=== PATIENT | male | born 1935 | race Caucasian/White ===

== ENCOUNTER 2019-10-17 09:35 | Inpatient (IN) | payer MEDICARE, OTHER ==
[~2019-10-17] VITALS: Ht 185.4 cm; Wt 156.5 kg
--- NOTE | ~2019-10-17 | HEMODYNAMI ---
PATIENT:TIMMY REYES MEDICAL RECORD: [id number] : 37 LOCATION:[facility] D.7 ADMISSION DATE: 10/17/19 Generatedon:10/19/20199:36 Patient name: TIMMY REYES Patient #: [id number] SSN: : 1935 Date of study: 10/19/2019 Page: Of Hemodynamic Procedure Report Patient Data Patient Demographics Procedure consent was obtained First Name: TIMMY Gender: Male Last Name: AMY : 1935 Patient #: [id number] Age: 83 year(s) Race: Additional ID: [id number] Contact details [address]: [address] [place] [address] ln State: [place] City: [place] Zip code: [address] Past Medical History Allergies Allergen Reaction Date Comments Reported Other allergy 10/19/2019 NKDA Admission Admission Data Admission Date: 10/17/2019 Admission Time: 12:09 Room #: D.2117 Height (in.): 72.83 BSA: 2.7 (m2) Height (cm.): 185 BMI: 45.58 (kg/m2) Weight (lbs.): 343.92 Weight (kg.): 156 Lab Results Lab Result Date: 10/19/2019 Lab Result Time: 0:00 Biochemistry Name Units Result Min Max BUN mg/dl 15 --(--*-)-- 7 18 Creatinine mg/dl 1.1 --(--*-)-- 0.6 1.3 eGFR ml/min 67.62504 *-(----)-- 90 120 NONAFRICAN CBC Name Units Result Min Max Hematocrit % 48.1 --(--*-)-- 42 54 Hemoglobin g/dl 15.9 --(--*-)-- 13.5 17.5 Procedure Procedure Types Cath Procedure Diagnostic Procedure [facility] w/Coronaries Sedation Charges Moderate Sedation up to 15 minutes Procedure Description Procedure Date Procedure Date: 10/19/2019 Procedure Start Time: 9:23 Procedure End Time: 9:35 Procedure Staff Name Function Tran Tala RT Monitor Jeaneth Lozano RT Scrub Bobbi Grove RN Nurse Julio Sigala MD Performing Physician Procedure Data Cath Procedure Fluoroscopy Diagnostic fluoroscopy Total fluoroscopy Time: 1.6 time: 1.6 min min Diagnostic fluoroscopy Total fluoroscopy dose: 779 dose: 779 mGy mGy Contrast Material Contrast Material Type Amount (ml) Isovue 300 76 Entry Location Entry Primary Successful Side Size Upsize Upsize Entry Closure Succes sful Closure Location (Fr) 1 (Fr) 2 (Fr) Remarks Device Remarks Femoral Right 5 Fr Exoseal artery Estimated blood loss: 5 ml Diagnostic catheters Device Type Used For End Catheter Placement MULTIPACK JL 4.0 5Fr Left Coronary catheter Angiography MULTIPACK 3DRC 5Fr Right Coronary catheter Angiography MULTIPACK Pigtail 5 Fr LV Angiography catheter Procedure Complications No complications Procedure Medications Medication Administration Route Dosage Oxygen etCO2 Nasal cannula 2 l/min Lidocaine 2% added to field 20 Heparin Flush Bag added to field 2 bags (1000units/500ml NS) 0.9% NaCl I.V. 100 ml/hr Versed I.V. 1 mg Fentanyl I.V. 50 mcg Versed I.V. 1 mg Fentanyl I.V. 50 mcg unlisted medication I.V. drip 0.5 mg/hr Hemodynamics Rest BSA: 2.7 (m2) HGB: 15.9 (g/dl) O2 Consumption: Estimated: 310.53 (ml/min) O2 Con sumption indexed: Estimated:115.01 (ml/min/m) Heart Rate: 73 (bpm) Pressure Samples Time Site Value (mmHg) Purpose Heart Use Rate(bpm) 9:30 LV 132/16,15 Snapshot 73 Gradients Valve Time Site Site Mean SEP/DFP Peak To Heart Use 1 2 (mmHg) (sec/min) Peak Rate (mmHg) (bpm) Aortic 9:30 LV AO 74 Snapshots Pre Cath Intra NCS Post Cath Vital Signs Time Heart Resp SPO2 etCO2 NIBP (mmHg) Rhythm Pain Sedation Rate (ipm) (%) (mmHg) Status Level (bpm) 9:19:52 72 22 96 0 147/73(119) NSR 0 (11) 10(A) , No pain 9:24:33 74 18 93 0 125/56(81) NSR 0 (11) 10(A) , No pain 9:29:03 72 14 93 0 126/64(96) NSR 0 (11) 9(A) , No pain 9:33:31 72 19 95 0 137/65(100) NSR 0 (11) 10(A) , No pain Medications Time Medication Route Dose Verified Delivered Reason Notes E ffectiveness by by 9:20:26 Bumex drip I.V. 0.5 Julio Buffie Per Continued drip mg/hr [facility] Robert Grove RN physician from [facility] [place] floor via alaris pump. 9:22:25 Oxygen etCO2 2 Julio Buffie used for Nasal l/min [facility] transistor tester cannula 9:22:32 Lidocaine 2% added 20ml Julio Julio for local to vial [facility] anesthetic field MD HOLGUIN 9:22:39 Heparin Flush added 2 Julio Julio used for Bag to bags [facility] procedure (1000units/500ml field MD HOLGUIN NS) 9:22:47 0.9% NaCl I.V. 100 Julio Buffie Per ml/hr [facility] RN physician 9:23:05 Fentanyl I.V. [address] for mcg [facility] Grove RN sedation 9:23:58 Versed I.V. 1 mg [address] for [facility] RN sedation 9:28:14 Versed I.V. 1 [address] for [facility] RN sedation 9:28:18 Fentanyl I.V. [address] for mcg [facility] Robert Grove RN sedation Procedure Log Time Note 8:28:57 Informed consent obtained and on chart 8:30:56 Procedure Status Urgent Heart Cath (IP). 8:30:57 Time tracking: Regular hours (M-F 7:00 - 5:00) 8:31:02 Plan of Care:Hemodynamics will remain stable., Cardiac rhythm will remain stable., Comfort level will be maintained., Respiratory function will remain adequate., Patient/ family verbilizes understanding of procedure., Procedure tolerated without complication., Recovers from procedure without complications.. 8:31:08 H&P Date Dictated: 10/18/2019 Within 30 days and on chart., H&P Addendum completed by physician on day of procedure. (MUST COMPLETE FOR ALL OUTPATIENTS). 8:34:57 Patient Weight : 343.92 lbs 8:35:01 Patient Height : 72.83 inches 8:49:47 Jeaneth Lozano RT(R) sent for patient. Start room use. 8:59:11 Lab Result : eGFR NONAFRICAN 67.50765 ml/min 8:59:11 Lab Result : Creatinine 1.1 mg/dl 8:59:11 Lab Result : BUN 15 mg/dl 8:59:11 Lab Result : Hematocrit 48.1 % 8:59:11 Lab Result : Hemoglobin 15.9 g/dl 9:01:48 Patient allergic to Other allergyNKDA 9:02:11 Stress Test: yes; abnormal APICAL LATERAL 9:02:17 Lab results completed and on chart. 9:12:30 Patient received from Med II to CCL 1 Alert and oriented. Tansferred to table in Supine position. 9:12:31 Warm blankets applied, and therese hugger turned on for patient comfort. 9:12:32 ECG and BP/O2 sat monitors applied to patient. 9:12:32 Correct patient and procedure confirmed by team. 9:18:24 Vital chart was started 9:18:25 Baseline sample Acquired. 9:18:34 Rhythm: sinus rhythm 9:18:36 Full Disclosure recording started 9:18:37 9:18:38 Pre-procedure instructions explained to patient. 9:18:39 Pre-op teaching completed and patient verbalized understanding. 9:18:47 Family unavailable. 9:18:50 Patient NPO since Midnight. 9:18:58 Is the patient allergic to Iodine/contrast media? No. 9:19:01 Was the patient premedicated? Yes 9:19:10 Is patient on blood thinner?Yes 9:19:20 ACC The patient was administered the following blood thiners within the last 24 hours: ACCLovenox 9:19:30 Patient diabetic? Yes. 9:19:36 ----Pre-sedation anethsthesia assessment.---- 9:19:40 Previous problem with sedation/anesthesia? No ? 9:19:42 Snore? Yes 9:19:45 Sleep apnea? Yes 9:19:49 Deviated septum? Unknown 9:19:51 Opens mouth fully? Yes 9:19:53 Sticks out tongue? Yes 9:20:08 Airway obstruction? Yes SLEEP APNEA/SLEEPS WITH CPAP 9:20:15 Dentures? Yes IN TIGHT 9:20:26 Bumex drip 0.5 mg/hr I.V. drip was administered by Bobbi Grove RN; Per physician; Continued from [facility] floor via alaris pump. Verbal order read back and verified. 9:22:15 Pre procedure: right dorsailis pedis pulse 2+ Normal; easily identifiable; not easily obliterated 9:22:24 IV patent on arrival in right wrist with 0.9% NaCl at [facility]. 9:22:25 Oxygen 2 l/min etCO2 Nasal cannula was administered by Bobbi Grove RN; used for procedure; Verbal order read back and verified. 9:22:32 Lidocaine 2% 20ml vial added to field was administered by Julio Sigala MD; for local anesthetic; Verbal order read back and verified. 9:22:34 Right groin area was prepped with chlora-prep and draped in sterile fashion 9:22:36 Alarms reviewed by R. N. 9::37 Sharps counted by scrub and verified by R.N. 9::38 Physician arrived 9::39 Heparin Flush Bag (1000units/500ml NS) 2 bags added to field was administered by Julio Sigala MD; used for procedure; Verbal order read back and verified. 9::39 --------ALL STOP TIME OUT------ 9:22:40 Final Timeout: patient, procedure, and site verified with staff and physician. All members of the team are in agreement. 9:22:42 Right groin site verified by team. 9:22:47 0.9% NaCl 100 ml/hr I.V. was administered by Bobbi Grove RN; Per physician; Verbal order read back and verified. 9:22:54 Maximum allowable contrast dose (3.7 X eGFR X 0.75)188 ml. 9:23:03 2) 60-89 Mildly reduced kidney function, and other findings (as for stage 1) point to kidney disease. 9:23:05 Fentanyl 50 mcg I.V. was administered by Bobbi Grove RN; for sedation; Verbal order read back and verified. 9:23:09 Sedation plan: IV Moderate Sedation Medication:Versed, Fentanyl 9:23:14 Physical assessment completed. ASA score P 2 - A patient with mild systemic disease as per Julio Sigala MD. 9:23:16 Fire Safety Assessment: A--An alcohol-based skin anteseptic being used preoperatively. 9:23:21 Fire Safety Assessment: A--An alcohol-based skin anteseptic being used preoperatively., C--Open oxygen or nitrous oxide is being used., D--An ESU, laser, or fiber-optic light is being used. 9:23:27 Use device set Femoral Dx 9:23:28 ACIST Syringe (66712) opened to sterile field. 9:23:29 Bag Decanter (2002S) opened to sterile field. 9:23:29 Medline Cath Pack ([id number]) opened to sterile field. 9:23:32 ACIST Hand Control (75432) opened to sterile field. 9:23:32 ACIST Manifold (18016) opened to sterile field. 9:23:34 DIAGNOSTIC Multipack 5Fr catheter set (VC8260) opened to sterile field. 9:23:34 Tegaderm 4 x 4 (1626W) opened to sterile field. 9:23:37 SHEATH 5FR Mar Lin (WDW524) opened to sterile field. 9:23:38 EMERALD Guide Wire (999-315) opened to sterile field. 9:23:50 Procedure started. 9:23:57 Local anesthetic to right femoral artery with Lidocaine 2% by Julio Sigala MD.INITIAL ACCESS ONLY 9:23:58 Versed 1 mg I.V. was administered by Bobbi Grove RN; for sedation; Verbal order read back and verified. 9:24:25 Zero performed for pressure channel P1 9:25:21 Zero performed for pressure channel P1 9:25:40 A 5 Fr sheath was inserted into the Right Femoral artery 9:25:51 A MULTIPACK JL 4.0 5Fr catheter was advanced over the wire and used for Left Coronary Angiography. 9:26:58 LCA angiography performed. 9:27:02 Injector settings: Ml/sec: 3, Volume: 6, 9:27:42 Catheter removed. 9:27:49 A MULTIPACK 3DRC 5Fr catheter was advanced over the wire and used for Right Coronary Angiography. 9:28:14 Versed 1 mg I.V. was administered by Bobbi Grove RN; for sedation; Verbal order read back and verified. 9:28:18 Fentanyl 50 mcg I.V. was administered by Bobbi Grove RN; for sedation; Verbal order read back and verified. 9:29:05 RCA angiography performed. 9:29:13 Injector settings: Ml/sec: 3, Volume: 6, 9:29:20 Catheter removed. 9:29:34 A MULTIPACK Pigtail 5 Fr catheter was advanced over the wire and used for LV Angiography. 9:29:47 Injector settings: Ml/sec: 5, Volume: 15, 9:30:35 LV gram done using FRANKLIN 9:31:04 EF : 30 % 9:31:07 LV hemodynamics recorded. 9:31:09 EXOSEAL 5Fr (EX500) opened to sterile field. 9:31:13 Catheter removed. 9:31:28 Contrast amount:Isovue 300 76ml. 9:31:31 Maximum allowable dose exceeded? No. 9:31:42 Sheath removed intact; hemostasis achieved with Exoseal to the Right Femoral artery. 9:31:46 Procedure ended.(Physican Out) 9:32:24 Fluoroscopy time 01.60 minutes. 9:32:30 Fluoroscopy dose: 779 mGy 9:32:30 Flurop Dose total: 779 9:32:38 Dose Area Product 91029 mGy/cm. 9:32:42 Sharps counted by scrub and verified by R.N. 9:32:51 Post-op/insertion site Right Femoral artery dressed using a 4 x 4 and Tegaderm. 9:32:56 Post-procedure physical assessment completed. ASA score P 2 - A patient with mild systemic disease as per Julio Sigala MD. 9:33:00 Post procedure rhythm: unchanged. 9:33:05 Estimated blood loss: 5 ml 9:33:07 Post procedure instruction explained to patient.Patient verbalizes understanding. 9:33:08 Patient needs reinforcement of post procedure teaching. 9:33:17 Procedure type changed to Cath procedure, Diagnostic procedure, LHC, LHC w/Coronaries, Sedation Charges, Moderate Sedation up to 15 minutes 9:33:19 Procedure and supply charges have been captured, reviewed, submitted and are correct. 9:33:28 Procedure Complication : No complications 9:34:22 Vital chart was stopped 9:34:25 [facility] Findings: mild to moderate CAD (<70%) 9:34:29 See physician's report for complete and final results. 9:34:32 Report given to [facility] II. 9:34:38 Patient transfered to [facility] with Bed. 9:35:10 Procedure ended. 9:35:10 Full Disclosure recording stopped 9:35:12 End room use (Document Last) Device Usage Item Name Manufacture Quantity Catalog Hospital Part Current Minimal L ot# / Number Charge Number Stock Stock Serial# Code ACIST Acist 1 05032 [id number] [id number] 826017 20 Syringe Medical (08338) Systems Inc Bag Microtek 1 2001S 941519 72913 249080 5 Decanter Medical Inc. () Medline Medline 1 [id number] 410080 83285 417344 5 Cath Pack ([id number]) ACIST Hand Acist 1 47203 511446 527599 672341 5 Control Medical (41148) Systems Inc ACIST Acist 1 78022 060052 817774 458407 5 Manifold Medical (74084) Systems Inc DIAGNOSTIC Cardinal 1 RH6264 679497 24299 368646 30 Multipack Health 5Fr catheter set (CE0606) Tegaderm 4 3M 1 1626W 933265 714695 310328 5 x 4 (1626W) SHEATH 5FR Terumo 1 BNT757 541543 254736 191196 5 Mar Lin (RPD145) EMERALD Cardinal 1 502-455 664901 814402 012532 5 Guide Wire Health (502455) MULTIPACK Cardinal 1 415583 5 JL 4.0 5Fr Health catheter MULTIPACK Cardinal 1 941854 5 3DRC 5Fr Health catheter MULTIPACK Cardinal 1 131202 5 Pigtail 5 Health Fr catheter EXOSEAL 5Fr Cardinal 1 EX500 132182 597796 155387 10 (EX500) Health Signature Audit Wink Stage Time Signature Unsigned Intra-Procedure 10/19/2019 Tran 9:35:37 AM Tala RT(R) (CV) Intra-Procedure 10/19/2019 Bobbi Grove RN 9:36:12 AM Intra-Procedure 10/19/2019 Julio Pablo 9:36:43 AM Robert HOLGUIN [facility] [address] [place] [address]
[~2019-10-17 09:35] MED LIST: CATAFLAM50 MG; KLOR-CON M2020 MEQ PO; LASIX40 MG PO; LISINOPRIL10 MG PO
[2019-10-17] MEDS ORDERED: ALEVE220 MG PO (09:58)
[2019-10-17] MEDS ORDERED: SYNTHROID25 MCG PO (09:58)
[2019-10-17] MEDS ORDERED: FLOMAX0.4 MG PO (09:59)
[2019-10-17] MEDS ORDERED: K-TAB10 MEQ PO (09:59)
[2019-10-17] MEDS ORDERED: COZAAR100 MG PO (09:59)
[2019-10-17] MEDS ORDERED: OMEPRAZOLE20 M1 PO (10:00)
[2019-10-17] MEDS ORDERED: SAW PALMETTO450 MG PO (10:00)
[2019-10-17 10:39] LABS: BASOPHILS 0.1 % (0-2); EOSINOPHILS 0.6 % (0-7); HEMATOCRIT 48.1 % (42.0-54.0); HEMOGLOBIN 15.9 g/dL (13.5-17.5); IMMATURE GRANULOCYTES 0.1 % (0-5); LYMPHOCYTES 10.9 % (15-50); MCH 36.7 pg (26.0-34.0); MCHC 33.1 g/dL (31.0-37.0); MCV 111.1 fL (80.0-100.0); MEAN PLATELET VOLUME 10.5 fL (7.4-10.4); NEUTROPHILS 81.3 % (40-80); RBC 4.33 10x6/uL (4.20-6.10); RDW 14.4 % (11.5-14.5); WBC 6.8 10x3/uL (4.8-10.8)
[2019-10-17 10:41] LABS: CALC OSMOLALITY 279 mosm/kg (275-300); CALCIUM 8.7 mg/dL (8.5-10.1); CARBON DIOXIDE 31.7 mmol/L (21.0-32.0); CHLORIDE - SERUM 102 mmol/L (98-107); GLUCOSE 113 mg/dL (74-106); POTASSIUM - SERUM 4.2 mmol/L (3.5-5.1); SODIUM 140 mmol/L (136-145); UREA NITROGEN 13 mg/dL (7-18); eGFR NON AFRICAN AMERICAN 76 mL/min (90-120)
[2019-10-17 10:42] LABS: PLATELET COUNT 78 10x3/uL (130-400)
[2019-10-17 10:43] LABS: INR 1.25 (0.85-1.17); PROTIME 15.6 SECONDS (11.6-15.0)
[2019-10-17 10:44] LABS: APTT 31.3 SECONDS (22.8-39.4)
[2019-10-17 10:57] LABS: PLATELET ESTIMATE DECREASED
[2019-10-17 11:06] LABS: ALBUMIN 3.8 g/dL (3.4-5.0); ALKALINE PHOSPHATASE 146 U/L (30-120); ALT (SGPT) 32 U/L (10-68); BILIRUBIN - TOTAL 1.63 mg/dL (0.2-1.3); CKMB 2.3 U/L (0.0-3.6); CREATINE KINASE 105 UL (21-232); PRO BNP 1813 pg/mL (0-450)
[2019-10-17 11:14] LABS: TROPONIN-I 0.143 ng/mL (0.000-0.060)
[2019-10-17 11:48] VITALS: BP 197/99
[2019-10-17 11:50] VITALS: BP 166/84
--- NOTE | 2019-10-17 12:30 | NUR ---
PT TO CT
--- NOTE | 2019-10-17 13:50 | NUR ---
PT TOOK OXYGEN OFF AND REFUSED TO WEAR FOR RIDE TO ROOM.
[2019-10-17 14:31] VITALS: BP 176/76; BMI 47.9
[2019-10-17 15:30] VITALS: BP 170/84
[2019-10-17 18:59] LABS: CKMB 2.3 U/L (0.0-3.6); CREATINE KINASE 41 UL (21-232)
[2019-10-17 19:13] LABS: TROPONIN-I 0.114 ng/mL (0.000-0.060)
--- NOTE | 2019-10-17 19:43 | NUR ---
REPORT RECIEVED AND ROUNDING COMPLETE. PATIENT LAYING IN BED IN LOW FOWLERS, PATIENT ASKED NURSE TO EMPTY HIS URINAL, HE REPORTS HE IS FEELING A LITTLE BETTER ALREADY. RIGHT AC PIV THE IS PATENT AND RUNNING FLUIDS AT THIS TIME. WEARING NASAL CANNULA WITH O2 AT 3L, NO DISTRESS NOTED. VOICED NO NEEDS AT THIS TIME. CALL LIGHT WITHIN REACH AND BED IN LOWEST LOCKED POSITION.
[2019-10-17 21:11] VITALS: BP 147/72
[2019-10-18] VITALS: BP 151/60
[2019-10-18 00:23] LABS: CKMB 2.9 U/L (0.0-3.6); CREATINE KINASE 165 UL (21-232)
[2019-10-18 00:24] LABS: TROPONIN-I 0.119 ng/mL (0.000-0.060)
[2019-10-18 04:00] VITALS: BP 138/51
[2019-10-18 05:52] LABS: BASOPHILS 0.2 % (0-2); EOSINOPHILS 2.5 % (0-7); HEMATOCRIT 44.5 % (42.0-54.0); HEMOGLOBIN 14.5 g/dL (13.5-17.5); LYMPHOCYTES 19.5 % (15-50); MCH 36.1 pg (26.0-34.0); MCHC 32.6 g/dL (31.0-37.0); MCV 110.7 fL (80.0-100.0); MEAN PLATELET VOLUME 10.6 fL (7.4-10.4); MONOCYTES 10.8 % (2-11); PLATELET COUNT 75 10x3/uL (130-400); RBC 4.02 10x6/uL (4.20-6.10); RDW 14.4 % (11.5-14.5)
[2019-10-18 06:16] LABS: WBC 4.8 10x3/uL (4.8-10.8)
[2019-10-18 06:33] LABS: CALC OSMOLALITY 278 mosm/kg (275-300); CALCIUM 8.3 mg/dL (8.5-10.1); CARBON DIOXIDE 36.4 mmol/L (21.0-32.0); CHLORIDE - SERUM 101 mmol/L (98-107); CKMB 2.7 U/L (0.0-3.6); CREATINE KINASE 218 UL (21-232); CREATININE - SERUM 1.1 mg/dL (0.6-1.3); GLUCOSE 86 mg/dL (74-106); PRO BNP 1506 pg/mL (0-450); SODIUM 140 mmol/L (136-145); UREA NITROGEN 15 mg/dL (7-18); eGFR NON AFRICAN AMERICAN 68 mL/min (90-120)
[2019-10-18 06:34] LABS: POTASSIUM - SERUM 3.5 mmol/L (3.5-5.1); TROPONIN-I 0.126 ng/mL (0.000-0.060)
[2019-10-18 06:42] LABS: PLATELET ESTIMATE DECREASED
--- NOTE | 2019-10-18 08:00 | NUR ---
IV RESTARTED TO RIGHT FA WITH 22 GAUGE CATH X 1 STICK AND FLUSHED WITH NS. LINE IS PATENT.
[2019-10-18 08:01] VITALS: BP 144/60
[2019-10-18 12:57] VITALS: Ht 185.4 cm; Wt 156.5 kg
--- NOTE | 2019-10-18 13:00 | NUR ---
LEAVING FOR STRESS TEST BY W/C.
--- NOTE | 2019-10-18 14:00 | NUR ---
BACK FROM STRESS TEST. DIET RESUMED.
[2019-10-18 21:26] VITALS: BP 147/50
[2019-10-19 04:02] VITALS: BP 125/47
--- NOTE | 2019-10-19 09:00 | NUR ---
CONSENTS SIGNED. PRE-OPS GIVEN. TO CLINICAL PROJECT ASSISTANT BY BED.
[2019-10-19 09:06] VITALS: BP 150/56
--- NOTE | 2019-10-19 10:05 | NUR ---
BACK FROM INSTRUMENT MAKER. VS WNL. RIGHT GROIN STABLE WITHOUT BLEEDING OR HEMATOMA NOTED. WILL MONITOR.
[2019-10-19] MEDS ORDERED: ALDACTONE25 MG PO (10:26)
[2019-10-19] MEDS ORDERED: COREG 3.1253.125 MG PO (10:28)
[2019-10-19] MEDS ORDERED: BAYER CHEWABLE81 MG PO (10:29)
[2019-10-19] MEDS ORDERED: MUPIROCIN15 GM TOPICAL (10:33)
[2019-10-19 11:28] LABS: BASOPHILS 0.2 % (0-2); HEMOGLOBIN 15.4 g/dL (13.5-17.5); LYMPHOCYTES 14.5 % (15-50); MCH 36.2 pg (26.0-34.0); MCHC 32.8 g/dL (31.0-37.0); MCV 110.6 fL (80.0-100.0); MEAN PLATELET VOLUME 10.2 fL (7.4-10.4); MONOCYTES 10.8 % (2-11); NEUTROPHILS 73.5 % (40-80); PLATELET COUNT 75 10x3/uL (130-400); RBC 4.25 10x6/uL (4.20-6.10); RDW 14.1 % (11.5-14.5)
[2019-10-19 11:53] LABS: ALT (SGPT) 34 U/L (10-68); CALC OSMOLALITY 286 mosm/kg (275-300); CHLORIDE - SERUM 99 mmol/L (98-107); CHOL - HDL RATIO 3.5 ratio (2.3-4.9); CHOLESTEROL, TOTAL 123 mg/dL (0-200); CREATININE - SERUM 0.9 mg/dL (0.6-1.3); GLUCOSE 96 mg/dL (74-106); HDL CHOLESTEROL 35 mg/dL (32-96); LDL CHOLESTEROL 76 mg/dL (0-100); LDL-HDL RATIO 2.2 ratio (1.5-3.5); POTASSIUM - SERUM 3.2 mmol/L (3.5-5.1); SODIUM 143 mmol/L (136-145); TRIGLYCERIDE 60 mg/dL (30-200); UREA NITROGEN 17 mg/dL (7-18); eGFR NON AFRICAN AMERICAN 86 mL/min (90-120)
[2019-10-19 11:57] LABS: CARBON DIOXIDE 41.7 mmol/L (21.0-32.0)
[2019-10-19 11:58] LABS: WBC 6.3 10x3/uL (4.8-10.8)
--- NOTE | 2019-10-19 12:02 | NUR ---
BED REST UP. GROIN STABLE.
--- NOTE | 2019-10-19 12:09 | MORECARE ---
CASE MANAGEMENT DISCHARGE SUMMARY PATIENT: TIMMY OWEN UNIT: [id number] ADM DATE: 10/17/19 AGE: 83 : 36 SEX: M ROOM/BED: D.2116 AUTHOR: DOUG HUGGINS PHYSICIAN: REFERRING PHYSICIAN: PAUL EMERY MD DATE OF SERVICE: 10/19/19 Discharge Plan Patient Name: TIMMY OWEN [facility] [facility] 1935 Planned Disposition: Home Anticipated Discharge Date: 10/19/19 Discharge Date: Expected LOS: 2 Initial Reviewer: [email or web address] Initial Review Date: 10/19/2019 Generated: 10/19/19 1:08 pm DCPIA - Discharge Planning Initial Assessment Updated by [email or web address]: Vy Palacios on 10/19/19 12:03 pm * Is the patient Alert and Oriented? Yes * How many steps to enter\exit or inside your home? 2/0 * PCP Dr. Emery * Pharmacy [facility] on [address] * Preadmission Environment Home with Family * ADLs Partial Dependent * Partial ADLs (Assistance needed) Ambulation Medication Management * Equipment Cane CPAP Oxygen * Other Equipment Electric compression sleeves Oxygen concentrator only for CPAP * List name and contact numbers for known caregivers / representatives who currently or will assist patient after discharge: Oma Owen - [facility] - [phone] * Verbal permission to speak to the caregivers and representatives has been obtained from the patient. Yes * Community resources currently utilized None * Additional services required to return to the preadmission environment? Yes * Can the patient safely return to the preadmission environment? Yes * Has this patient been hospitalized within the prior 30 days at any hospital? No Patient Name: TIMMY OWEN Page 17460 at 1209 All edits/amendments must be made on the electronic document DICTATION DATE: 10/19/19 1209 FASHION JOURNALIST: MADY 10/19/19 1209 RPT#: [id number] DC DATE: STATUS: ADM IN [facility] [address] [place] [address] END OF REPORT
--- NOTE | 2019-10-19 12:16 | NUR ---
02 SATS DROPPED TO 73% ON RA AT REST. LAB CALLED CR CO2 41.7. DR. MCDONOUGH NURSE NOTIFIED.
--- NOTE | 2019-10-19 12:18 | MORECARE ---
CASE MANAGEMENT DISCHARGE SUMMARY PATIENT: TIMMY OWEN UNIT: [id number] ADM DATE: 10/17/19 AGE: 83 : 36 SEX: M ROOM/BED: D.9267 AUTHOR: BHAVNA,DOC PHYSICIAN: REFERRING PHYSICIAN: PAUL EMERY MD DATE OF SERVICE: 10/19/19 Discharge Plan Patient Name: TIMMY OWEN Facility[facility]:[place] : 1935 Planned Disposition: Home Anticipated Discharge Date: 10/19/19 Discharge Date: Expected LOS: 2 Initial Reviewer: [email or web address] Initial Review Date: 10/19/2019 Generated: 10/19/19 1:17 pm Comments DCP- Discharge Planning Updated by [email or web address]: Vy Palacios on 10/19/19 11:[address] Patient Name: TIMMY OWEN Admission Status: ER Accout number: [id number] Admission Date: 10-17-2019 : 1935 Admission Diagnosis:SHORTNESS OF BREATH Attending: PAUL EMERY Current LOS: 2 Anticipated DC Date: 10-19-2019 Planned Disposition: Home Primary Insurance: MEDICARE A & B Discharge Planning Comments: CM met with patient and his spouse to complete initial dc planning assessment. CM educated patient on the CM role and verbal consent given by patient to complete assessment. Patient lives at home with his spouse. He ambulates with a cane. His sets up his medications, otherwise he is independent with his care. At discharge patient plans to return home and feels this is a safe discharge. CM discussed availability of home health, rehab services, and medical equipment. Patient denied known discharge needs at this time. I informed him that we would do a room air oxygen saturation on him prior to discharge with activity to see if he qualifies for home oxygen. He states "I don't think I need it." I informed him that since he is using oxygen now, we needed to make sure. Patient removes oxygen from his nose. I asked him to replace it if he became short of breath. I contacted [facility] and they will do a room air saturation after lunch. I informed Kayla (his nurse) that she would need to call in his prescriptions to [facility] on [address] since no pharmacy was entered on admission. 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 I will notify [facility] and send order if oxygen is needed. CM will continue to follow and will assist as needed with dc plans/needs. Learning Facilitator: Vy Palacios DCPIA - Discharge Planning Initial Assessment Updated by [email or web address]: Vy Palacios on 10/19/19 12:03 pm * Is the patient Alert and Oriented? Yes * How many steps to enter\\exit or inside your home? 2/0 * PCP Dr. Emery * Pharmacy [facility] on [address] * Preadmission Environment Home with Family * ADLs Partial Dependent * Partial ADLs (Assistance needed) Ambulation Medication Management * Equipment Cane CPAP Oxygen * Other Equipment Electric compression sleeves Oxygen concentrator only for CPAP * List name and contact numbers for known caregivers / representatives who currently or will assist patient after discharge: Oma Owen - spouse - [phone] * Verbal permission to speak to the caregivers and representatives has been obtained from the patient. Yes * Community resources currently utilized None * Additional services required to return to the preadmission environment? Yes * Can the patient safely return to the preadmission environment? Yes * Has this patient been hospitalized within the prior 30 days at any hospital? No Coverage Notice Reviewer: [email or web address] - Vy Palacios Notice Issued Date-Time: 10/19/2019 12:10 Notice Type: Patient Choice Letter Notice Delivered To: Patient Relationship to Patient: Self Lodging Facilities Attendant Name: Delivery Method: HAND - Hand Delivered Amy Days: Prior Verbal Notification: Recipient Understood Notice: Yes Recipient Signature: Yes Med Rec Note Co-signed by Attending: Coverage Notice Comment: CRISTINA for [facility] Last DP export: 10/19/19 11:09 a Patient Name: TIMMY OWEN Page [phone] at 1218 All edits/amendments must be made on the electronic document DICTATION DATE: 10/19/197 BODY ARTIST: MADY 10/19/197 RPT#: [id number] DC DATE: STATUS: ADM IN [facility] [address] [place] [address] END OF REPORT
--- NOTE | 2019-10-19 12:26 | MORECARE ---
CASE MANAGEMENT DISCHARGE SUMMARY PATIENT: TIMMY OWEN UNIT: [id number] ADM DATE: 10/17/19 AGE: 83 : 36 SEX: M ROOM/BED: D.9231 AUTHOR: BHAVNA,DOC PHYSICIAN: REFERRING PHYSICIAN: PAUL EMERY MD DATE OF SERVICE: 10/19/19 Discharge Plan Patient Name: TIMMY OWEN Facility: [facility]:[place] : 1935 Planned Disposition: Home Anticipated Discharge Date: 10/19/19 Discharge Date: Expected LOS: 2 Initial Reviewer: [id number] Initial Review Date: 10/19/2019 Generated: 10/19/19 1:25 pm Comments DCP- Discharge Planning Updated by [id number]: Vy Philip on 10/19/19 11:[address] ROOM AIR OXYGEN SATURATION WAS 73%. I HAVE ASKED HIS NURSE., ALEKSANDRA, TO CALL DR EMERY THE REPORT. I FAXED CLINICAL AND ROOM AIR SAT TO [facility] AND SPOKE WITH ASHLYNN. MANDEL TO CALL [facility] [employer] [facility] WHEN PATIENT IS DISCHARGED TO BRING PORTABLE OXYGEN TO [facility]. DCP- Discharge Planning Updated by [id number]: Vy Palacios on 10/19/19 11:[address] Patient Name: TIMMY OWEN Admission Status: ER Accout number: [id number] Admission Date: 10-17-2019 : 1935 Admission Diagnosis:SHORTNESS OF BREATH Attending: PAUL EMERY Current LOS: 2 Anticipated DC Date: 10-19-2019 Planned Disposition: Home Primary Insurance: MEDICARE A & B Discharge Planning Comments: CM met with patient and his spouse to complete initial dc planning assessment. CM educated patient on the CM role and verbal consent given by patient to complete assessment. Patient lives at home with his spouse. He ambulates with a cane. His sets up his medications, otherwise he is independent with his care. At discharge patient plans to return home and feels this is a safe discharge. CM discussed availability of home health, rehab services, and medical equipment. Patient denied known discharge needs at this time. I informed him that we would do a room air oxygen saturation on him prior to discharge with activity to see if he qualifies for home oxygen. He states "I don't think I need it." I informed him that since he is using oxygen now, we needed to make sure. Patient removes oxygen from his nose. I asked him to replace it if he became short of breath. I contacted [facility] and they will do a room air saturation after lunch. I informed Aleksandra (his nurse) that she would need to call in his prescriptions to [facility] on [address] since no pharmacy was entered on admission. Patient and are aware that they will have new Rx to [facility]. I will notify [facility] and send order if oxygen is needed. CM will continue to follow and will assist as needed with dc plans/needs. Heat Engineering Teacher: Vy Palacios DCPIA - Discharge Planning Initial Assessment Updated by [id number]: Vy Palacios on 10/19/19 12:03 pm * Is the patient Alert and Oriented? Yes * How many steps to enter\\exit or inside your home? 2/0 * PCP Dr. Emery * Pharmacy [facility] on [address] * Preadmission Environment Home with Family * ADLs Partial Dependent * Partial ADLs (Assistance needed) Ambulation Medication Management * Equipment Cane CPAP Oxygen * Other Equipment Electric compression sleeves Oxygen concentrator only for CPAP * List name and contact numbers for known caregivers / representatives who currently or will assist patient after discharge: Oma Owen - spouse - [phone] * Verbal permission to speak to the caregivers and representatives has been obtained from the patient. Yes * Community resources currently utilized None * Additional services required to return to the preadmission environment? Yes * Can the patient safely return to the preadmission environment? Yes * Has this patient been hospitalized within the prior 30 days at any hospital? No External Providers External Provider: [facility] Next Contact Date: Service Request Date: Service Type: Resolution: Reviewer: Comments: Coverage Notice Reviewer: [id number] - Vy Palacios Notice Issued Date-Time: 10/19/2019 12:10 Notice Type: Patient Choice Letter Notice Delivered To: Patient Relationship to Patient: Self License Clerk Name: Delivery Method: HAND - Hand Delivered Amy Days: Prior Verbal Notification: Recipient Understood Notice: Yes Recipient Signature: Yes Med Rec Note Co-signed by Attending: Coverage Notice Comment: CRISTINA for [employer] Last DP export: 10/19/19 11:18 a Patient Name: TIMMY OWEN Page [id number] at 1226 All edits/amendments must be made on the electronic document DICTATION DATE: 10/19/191225 WRAPPER HAND: MADY 10/19/196 RPT#: [id number] DC DATE: STATUS: ADM IN [facility] [address] [place] [address] END OF REPORT
--- NOTE | 2019-10-19 12:34 | NUR ---
DC CANCELED. NEW ORDERS GIVEN.
--- NOTE | 2019-10-19 12:35 | MORECARE ---
CASE MANAGEMENT DISCHARGE SUMMARY PATIENT: TIMMY OWEN UNIT: [id number] ADM DATE: 10/17/19 AGE: 83 : 36 SEX: M ROOM/BED: D.1 AUTHOR: DOUG HUGGINS PHYSICIAN: REFERRING PHYSICIAN: PAUL EMERY MD DATE OF SERVICE: 10/19/19 Discharge Plan Patient Name: TIMMY OWEN Facility: [facility]:[place] : 1935 Planned Disposition: Home Anticipated Discharge Date: 10/19/19 Discharge Date: Expected LOS: 2 Initial Reviewer: [email or web address] Initial Review Date: 10/19/2019 Generated: 10/19/19 1:34 pm Comments DCP- Discharge Planning Updated by [id number]: Vy Palacios on 10/19/19 11:[address] DISCHARGE CANCELLED FOR TODAY. DCP- Discharge Planning Updated by [email or web address]: Vy Palacios on 10/19/19 11:[address] ROOM AIR OXYGEN SATURATION WAS 73%. I HAVE ASKED HIS NURSE., ALEKSANDRA, TO CALL DR EMERY THE REPORT. I FAXED CLINICAL AND ROOM AIR SAT TO [facility] AND SPOKE WITH ASHLYNN. MANDEL TO CALL [facility] WHEN PATIENT IS DISCHARGED TO BRING PORTABLE OXYGEN TO [facility]. DCP- Discharge Planning Updated by [id number]: Vy Palacios on 10/19/19 11:[address] Patient Name: TIMMY OWEN Admission Status: ER Accout number: [id number] Admission Date: 10-17-2019 : 1935 Admission Diagnosis:SHORTNESS OF BREATH Attending: PAUL EMERY Current LOS: 2 Anticipated DC Date: 10-19-2019 Planned Disposition: Home Primary Insurance: MEDICARE A & B Discharge Planning Comments: CM met with patient and his spouse to complete initial dc planning assessment. CM educated patient on the CM role and verbal consent given by patient to complete assessment. Patient lives at home with his spouse. He ambulates with a cane. His sets up his medications, otherwise he is independent with his care. At discharge patient plans to return home and feels this is a safe discharge. CM discussed availability of home health, rehab services, and medical equipment. Patient denied known discharge needs at this time. I informed him that we would do a room air oxygen saturation on him prior to discharge with activity to see if he qualifies for home oxygen. He states "I don't think I need it." I informed him that since he is using oxygen now, we needed to make sure. Patient removes oxygen from his nose. I asked him to replace it if he became short of breath. I contacted [facility] and they will do a room air saturation after lunch. I informed Aleksandra (his nurse) that she would need to call in his prescriptions to [facility] on [address] since no pharmacy was entered on admission. Patient and are aware that they will have new Rx to [facility]. I will notify [employer] and send order if oxygen is needed. CM will continue to follow and will assist as needed with dc plans/needs. Legal Instruments Examiner: Vy Palacios DCPIA - Discharge Planning Initial Assessment Updated by [id number]: Vy Palacios on 10/19/19 12:03 pm * Is the patient Alert and Oriented? Yes * How many steps to enter\\exit or inside your home? 2/0 * PCP Dr. Emery * Pharmacy [facility] on [address] * Preadmission Environment Home with Family * ADLs Partial Dependent * Partial ADLs (Assistance needed) Ambulation Medication Management * Equipment Cane CPAP Oxygen * Other Equipment Electric compression sleeves Oxygen concentrator only for CPAP * List name and contact numbers for known caregivers / representatives who currently or will assist patient after discharge: Oma Owen - spouse - [phone] * Verbal permission to speak to the caregivers and representatives has been obtained from the patient. Yes * Community resources currently utilized None * Additional services required to return to the preadmission environment? Yes * Can the patient safely return to the preadmission environment? Yes * Has this patient been hospitalized within the prior 30 days at any hospital? No Coverage Notice Reviewer: [id number] - Vy Palacios Notice Issued Date-Time: 10/19/2019 12:10 Notice Type: Patient Choice Letter Notice Delivered To: Patient Relationship to Patient: Self Air Conditioning Specialist Name: Delivery Method: HAND - Hand Delivered Amy Days: Prior Verbal Notification: Recipient Understood Notice: Yes Recipient Signature: Yes Med Rec Note Co-signed by Attending: Coverage Notice Comment: CRISTINA for [employer] Last DP export: 10/19/19 11:26 a Patient Name: TIMMY OWEN Page [id number] at 1235 All edits/amendments must be made on the electronic document DICTATION DATE: 10/19/19 1234 DEPUTY DIRECTOR OF PUBLIC WORKS: MADY 10/19/19 1234 RPT#: [id number] DC DATE: STATUS: ADM IN [facility] [address] [place] [address] END OF REPORT
--- NOTE | 2019-10-19 13:20 | NUR ---
SWABED FOR COVID. TEST TO LAB. WILL MONITOR.
--- NOTE | 2019-10-19 20:00 | NUR ---
INITIAL ROUNDS AND ASSESSMENT COMPLETED. PT RESTING IN BED. AT BEDSIDE. O2 @ 3L/HFNC. IV TO RFA WITH BUMEX AT 5ML/HR. NO DISTRESS. CPOC.
[2019-10-19 22:27] VITALS: BP 114/37
--- NOTE | 2019-10-19 23:00 | NUR ---
ALL BEDTIME MEDS GIVEN. HAS GONE HOME FOR THE EVENING. PT NOW ON HIS HOME CPAP. CALL LIGHT IN REACH. CPOC.
[2019-10-20 02:07] VITALS: BP 109/59
--- NOTE | 2019-10-20 03:06 | NUR ---
NOTED O2 SAT ON VS ROUNDS 79%. RECHECK AND NOW 92% WITH PATIENT ON CPAP WITH O2 @ 3L IN USE.
[2019-10-20 05:51] VITALS: BP 100/37
[2019-10-20 07:00] VITALS: BP 128/47
--- NOTE | 2019-10-20 08:49 | NUR ---
AM MEDS GIVEN AT THIS TIME. PT A/O X4, RESP EVEN AND NONLABORED ON 3L NC. RT FA INFUSING BUMEX AT 5. HEART MONITOR SHOWING CAF WITH RATE OF 77. RT GROIN DRESSING CDI NO S/S OF BLEEDING OR HEMATOMA. PT WANTS TO GO HOME, DENIES ANY NEEDS AT THIS TIME. CALL LIGHT IN REACH, NAD NOTED,W ILL CONTINUE PLAN OF CARE.
--- NOTE | 2019-10-20 10:15 | MORECARE ---
CASE MANAGEMENT DISCHARGE SUMMARY PATIENT: TIMMY OWEN UNIT: [id number] ADM DATE: 10/17/19 AGE: 83 : 36 SEX: M ROOM/BED: D.5 AUTHOR: BHAVNA,DOC PHYSICIAN: REFERRING PHYSICIAN: PAUL EMERY MD DATE OF SERVICE: 10/20/19 Discharge Plan Patient Name: TIMMY OWEN Facility: [facility]:[place] : 1935 Planned Disposition: Home Anticipated Discharge Date: 10/19/19 Discharge Date: Expected LOS: 2 Initial Reviewer: [id number] Initial Review Date: 10/19/2019 Generated: 10/20/19 11:14 am Comments DCP- Discharge Planning Updated by [id number]: Lucie King on 10/20/19 9:[address] Patient Name: TIMMY OWEN Encounter No: [id number] : 1935 Primary Insurance: MEDICARE A & B Anticipated DC Date: 10-19-2019 Planned Disposition: Home External Planned Provider: : DCP follow-up note: Phone call to [facility] ([phone]) Spoke with Marine. Coordinated portable O2 delivery to hospital and set up for home. DC IMM delivered, explained, signed by the patient, and placed in chart. Signed form also left with the patient. Patient and family in agreement with discharge plan. No changes to plan. Case management will follow and assist as needed. Galdino Zarate DCP- Discharge Planning Updated by [id number]: Vy Palacios on 10/19/19 11:[address] DISCHARGE CANCELLED FOR TODAY. DCP- Discharge Planning Updated by [id number]: Vy Palacios on 10/19/19 11:[address] ROOM AIR OXYGEN SATURATION WAS 73%. I HAVE ASKED HIS NURSE., KAYLA, TO CALL DR EMERY THE REPORT. I FAXED CLINICAL AND ROOM AIR SAT TO [facility] AND SPOKE WITH CM TO CALL [facility] WHEN PATIENT IS DISCHARGED TO BRING PORTABLE OXYGEN TO [facility]. DCP- Discharge Planning Updated by [id number]: Vy Palacios on 10/19/19 11:[address] Patient Name: TIMMY OWEN Admission Status: ER Accout number: [id number] Admission Date: 10-17-2019 : 1935 Admission Diagnosis:SHORTNESS OF BREATH Attending: PAUL EMERY Current LOS: 2 Anticipated DC Date: 10-19-2019 Planned Disposition: Home Primary Insurance: MEDICARE A & B Discharge Planning Comments: CM met with patient and his spouse to complete initial dc planning assessment. CM educated patient on the CM role and verbal consent given by patient to complete assessment. Patient lives at home with his spouse. He ambulates with a cane. His sets up his medications, otherwise he is independent with his care. At discharge patient plans to return home and feels this is a safe discharge. CM discussed availability of home health, rehab services, and medical equipment. Patient denied known discharge needs at this time. I informed him that we would do a room air oxygen saturation on him prior to discharge with activity to see if he qualifies for home oxygen. He states "I don't think I need it." I informed him that since he is using oxygen now, we needed to make sure. Patient removes oxygen from his nose. I asked him to replace it if he became short of breath. I contacted [facility] and they will do a room air saturation after lunch. I informed Kayla (his nurse) that she would need to call in his prescriptions to [facility] on [address] since no pharmacy was entered on admission. Patient and are aware that they will have new Rx to [facility]. I will notify [facility] and send order if oxygen is needed. CM will continue to follow and will assist as needed with dc plans/needs. Insulation Worker Interior Surface: Vy Palacios [facility] - Discharge Planning Initial Assessment Updated by [id number]: Vy Palacios on 10/19/19 12:03 pm * Is the patient Alert and Oriented? Yes * How many steps to enter\\exit or inside your home? 2/0 * PCP Dr. Emery * Pharmacy [facility] [address] * Preadmission Environment Home with Family * ADLs Partial Dependent * Partial ADLs (Assistance needed) Ambulation Medication Management * Equipment Cane CPAP Oxygen * Other Equipment Electric compression sleeves Oxygen concentrator only for CPAP * List name and contact numbers for known caregivers / representatives who currently or will assist patient after discharge: Oma Owen - spouse - [phone] * Verbal permission to speak to the caregivers and representatives has been obtained from the patient. Yes * Community resources currently utilized None * Additional services required to return to the preadmission environment? Yes * Can the patient safely return to the preadmission environment? Yes * Has this patient been hospitalized within the prior 30 days at any hospital? No Coverage Notice Reviewer: [id number] Janette Vy Palacios Notice Issued Date-Time: 10/19/2019 12:10 Notice Type: Patient Choice Letter Notice Delivered To: Patient Relationship to Patient: Self Senior Applications Engineer Name: Delivery Method: HAND - Hand Delivered Amy Days: Prior Verbal Notification: Recipient Understood Notice: Yes Recipient Signature: Yes Med Rec Note Co-signed by Attending: Coverage Notice Comment: [facility] Reviewer: [id number] Janette King Notice Issued Date-Time: 10/20/2019 9:50 Notice Type: IM Discharge Notice Notice Delivered To: Patient Relationship to Patient: Senior Applications Engineer Name: Delivery Method: HAND - Hand Delivered Amy Days: Prior Verbal Notification: Recipient Understood Notice: Yes Recipient Signature: Yes Med Rec Note Co-signed by Attending: Coverage Notice Comment: DC IMM delivered, explained, signed by the patient, and placed in chart. Signed form also left with the patient. Last DP export: 10/19/19 11:35 a Patient Name: TIMMY OWEN Page [phone] at 1015 All edits/amendments must be made on the electronic document DICTATION DATE: 10/20/19 1015 UPPER MARKER: MADY 10/20/19 1015 RPT#: [id number] DC DATE: STATUS: ADM IN [facility] [address] [place] [address] END OF REPORT
--- NOTE | 2019-10-20 10:30 | NUR ---
PROVIDED VERBAL AND WRITTEN DISCHARGE TEACHING TO PT AND PT'S . BOTH VERBALIZED UNDERSTANDING REGARDING TEACHING. D/C RT FA IV WITH CATHETER TIP INTACT. HEART MONITOR REOMVED AND TAKENT O ACCOUNTING MACHINE OPERATOR. PT WAITING ON PORTABLY O2 TO BE DELIVERED. WILL PRESS CALL LIGHT WHEN READY FOR WHEELCHAIR.
--- NOTE | 2019-10-20 11:00 | OP ---
PATIENT NAME: TIMMY REYES MEDICAL RECORD: [id number] :[birth year] LOCATION:D.M2 D.2117 ADMISSION DATE:10/17/19 SURGEON: PARAMJIT BASS MD DATE OF OPERATION: 10/19/2019 PROCEDURE: Left heart catheterization, selective coronary angiography, right femoral artery approach. CATHETERS: A 5-Montenegrin sheath, 5/4 left and right Dayanna, 5/4 pig. The procedure was well tolerated. The patient was returned to [place]. Sheath removed. ExoSeal device placed. FINDINGS: Left ventriculography in 30-degree FRANKLIN view; global hypokinesis, more marked inferior hypokinesis. LV function is reduced at 30% to 35%. CORONARY ANATOMY: LEFT MAIN: Left main is free of disease. LAD: Free of disease in the diagonal system. CIRCUMFLEX: Left dominant system. Circumflex gives rise to PDA, free of disease. RIGHT CORONARY ARTERY: Rudimentary, free of disease. IMPRESSION AND PLAN: Nonischemic cardiomyopathy. Already on ARB and beta blockade, we will add Aldactone. If symptomatology continues, could consider switching ARB to Entresto down the road. No contraindication to discharge from cardiovascular stand point. TRANSINT:[id number] Voice Confirmation ID: [id number] DOCUMENT ID: [id number] PARAMJIT BASS MD at 1100 CC: [id number] DICTATION DATE: 10/19/19 0949 HELMINTHOLOGY TEACHER: 10/19/19 1449 ADM IN [facility] [address] [place] [address]
--- NOTE | 2019-10-20 11:18 | NUR ---
PT LEFT UNIT VIA WHEELCHAIR WITH ALL BELONGINGS, NAD NOTED.
--- NOTE | 2019-10-22 12:30 | MORECARE ---
CASE MANAGEMENT DISCHARGE SUMMARY PATIENT: TIMMY OWEN UNIT: [id number] ADM DATE: 10/17/19 AGE: 83 : 36 SEX: M ROOM/BED: D.6209 AUTHOR: BHAVNA,DOC PHYSICIAN: REFERRING PHYSICIAN: PAUL EMERY MD DATE OF SERVICE: 10/22/19 Discharge Plan Patient Name: TIMMY OWEN Facility: [facility]:[place] : 1935 Planned Disposition: Home Anticipated Discharge Date: 10/19/19 Discharge Date: 10/20/2019 Expected LOS: 2 Initial Reviewer: [id number] Initial Review Date: 10/19/2019 Generated: 10/22/19 1:29 pm Comments DCP- Discharge Planning Updated by [email or web address]: Lucie King on 10/20/19 9:[address] Patient Name: TIMMY OWEN Encounter No: [id number] : 1935 Primary Insurance: MEDICARE A & B Anticipated DC Date: 10-19-2019 Planned Disposition: Home External Planned Provider: : DCP follow-up note: Phone call to [facility] ([phone]) Spoke with Marine. Coordinated portable O2 delivery to hospital and set up for home. DC IMM delivered, explained, signed by the patient, and placed in chart. Signed form also left with the patient. Patient and family in agreement with discharge plan. No changes to plan. Case management will follow and assist as needed. Galdino Zarate DCP- Discharge Planning Updated by [id number]: Vy Palacios on 10/19/19 11:[address] DISCHARGE CANCELLED FOR TODAY. DCP- Discharge Planning Updated by [id number]: Vy Palacios on 10/19/19 11:[address] ROOM AIR OXYGEN SATURATION WAS 73%. I HAVE ASKED HIS NURSE., KAYLA, TO CALL DR EMERY THE REPORT. I FAXED CLINICAL AND ROOM AIR SAT TO [facility] AND SPOKE WITH ASHLYNN. MANDEL TO CALL [facility] WHEN PATIENT IS DISCHARGED TO BRING PORTABLE OXYGEN TO [facility]. DCP- Discharge Planning Updated by [email or web address]: Vy Palacios on 10/19/19 11:[address] Patient Name: TIMMY OWEN Admission Status: ER Accout number: [id number] Admission Date: 10-17-2019 : 1935 Admission Diagnosis:SHORTNESS OF BREATH Attending: PAUL EMERY Current LOS: 2 Anticipated DC Date: 10-19-2019 Planned Disposition: Home Primary Insurance: MEDICARE A & B Discharge Planning Comments: CM met with patient and his spouse to complete initial dc planning assessment. CM educated patient on the CM role and verbal consent given by patient to complete assessment. Patient lives at home with his spouse. He ambulates with a cane. His sets up his medications, otherwise he is independent with his care. At discharge patient plans to return home and feels this is a safe discharge. CM discussed availability of home health, rehab services, and medical equipment. Patient denied known discharge needs at this time. I informed him that we would do a room air oxygen saturation on him prior to discharge with activity to see if he qualifies for home oxygen. He states "I don't think I need it." I informed him that since he is using oxygen now, we needed to make sure. Patient removes oxygen from his nose. I asked him to replace it if he became short of breath. I contacted [facility] and they will do a room air saturation after lunch. I informed Kayla (his nurse) that she would need to call in his prescriptions to [facility] on [address] since no pharmacy was entered on admission. Patient and are aware that they will have new Rx to [facility]. I will notify [facility] and send order if oxygen is needed. CM will continue to follow and will assist as needed with dc plans/needs. Health Workers: Vy Palacios DCPIA - Discharge Planning Initial Assessment Updated by [email or web address]: Vy Palacios on 10/19/19 12:03 pm * Is the patient Alert and Oriented? Yes * How many steps to enter\\exit or inside your home? 2/0 * PCP Dr. Emery * Pharmacy [facility] on [address] * Preadmission Environment Home with Family * ADLs Partial Dependent * Partial ADLs (Assistance needed) Ambulation Medication Management * Equipment Cane CPAP Oxygen * Other Equipment Electric compression sleeves Oxygen concentrator only for CPAP * List name and contact numbers for known caregivers / representatives who currently or will assist patient after discharge: Oma Owen - spouse - [phone] * Verbal permission to speak to the caregivers and representatives has been obtained from the patient. Yes * Community resources currently utilized None * Additional services required to return to the preadmission environment? Yes * Can the patient safely return to the preadmission environment? Yes * Has this patient been hospitalized within the prior 30 days at any hospital? No Coverage Notice Reviewer: [email or web address] Janette Vy Palacios Notice Issued Date-Time: 10/19/2019 12:10 Notice Type: Patient Choice Letter Notice Delivered To: Patient Relationship to Patient: Self Program Services Assistant Name: Delivery Method: HAND - Hand Delivered Amy Days: Prior Verbal Notification: Recipient Understood Notice: Yes Recipient Signature: Yes Med Rec Note Co-signed by Attending: Coverage Notice Comment: [facility] [employer] [facility] Counsel[facility] [id number] - Lucie King Notice Issued Date-Time: 10/20/2019 9:50 Notice Type: IM Discharge Notice Notice Delivered To: Patient Relationship to Patient: Program Services Assistant Name: Delivery Method: HAND - Hand Delivered Amy Days: Prior Verbal Notification: Recipient Understood Notice: Yes Recipient Signature: Yes Med Rec Note Co-signed by Attending: Coverage Notice Comment: DC IMM delivered, explained, signed by the patient, and placed in chart. Signed form also left with the patient. Last DP export: 10/20/19 9:15 a Patient Name: TIMMY OWEN Page [phone] at 1230 All edits/amendments must be made on the electronic document DICTATION DATE: 10/22/19 1230 SPOOL FIXER: MADY 10/22/19 1230 RPT#: [id number] DC DATE:10/20/19 STATUS: DIS IN [facility] [address] [place] [address] END OF REPORT
--- NOTE | 2019-10-22 12:39 | MORECARE ---
CASE MANAGEMENT DISCHARGE SUMMARY PATIENT: TIMMY OWEN UNIT: [id number] ADM DATE: 10/17/19 AGE: 83 : 36 SEX: M ROOM/BED: D.6335 AUTHOR: BHAVNA,DOC PHYSICIAN: REFERRING PHYSICIAN: PAUL EMERY MD DATE OF SERVICE: 10/22/19 Discharge Plan Patient Name: TIMMY OWEN Facility: [facility]:[place] : 1935 Planned Disposition: Home Anticipated Discharge Date: 10/19/19 Discharge Date: 10/20/2019 Expected LOS: 2 Initial Reviewer: [email or web address] Initial Review Date: 10/19/2019 Generated: 10/22/19 1:39 pm Comments DCP- Discharge Planning Updated by [id number]: Lucie King on 10/20/19 9:[address] Patient Name: TIMMY OWEN Encounter No: [id number] : 1935 Primary Insurance: MEDICARE A & B Anticipated DC Date: 10-19-2019 Planned Disposition: Home External Planned Provider: : DCP follow-up note: Phone call to [facility] ([phone]) Spoke with Marine. Coordinated portable O2 delivery to hospital and set up for home. DC IMM delivered, explained, signed by the patient, and placed in chart. Signed form also left with the patient. Patient and family in agreement with discharge plan. No changes to plan. Case management will follow and assist as needed. Galdino Zarate DCP- Discharge Planning Updated by [email or web address]: Vy Palacios on 10/19/19 11:[address] DISCHARGE CANCELLED FOR TODAY. DCP- Discharge Planning Updated by [email or web address]: Vy Palacios on 10/19/19 11:[address] ROOM AIR OXYGEN SATURATION WAS 73%. I HAVE ASKED HIS NURSE., KAYLA, TO CALL DR EMERY THE REPORT. I FAXED CLINICAL AND ROOM AIR SAT TO [facility] AND SPOKE WITH ASHLYNN. MANDEL TO CALL [facility] WHEN PATIENT IS DISCHARGED TO BRING PORTABLE OXYGEN TO [facility]. DCP- Discharge Planning Updated by [email or web address]: Vy Palacios on 10/19/19 11:[address] Patient Name: TIMMY OWEN Admission Status: ER Accout number: [id number] Admission Date: 10-17-2019 : 1935 Admission Diagnosis:SHORTNESS OF BREATH Attending: PAUL EMERY Current LOS: 2 Anticipated DC Date: 10-19-2019 Planned Disposition: Home Primary Insurance: MEDICARE A & B Discharge Planning Comments: CM met with patient and his spouse to complete initial dc planning assessment. CM educated patient on the CM role and verbal consent given by patient to complete assessment. Patient lives at home with his spouse. He ambulates with a cane. His sets up his medications, otherwise he is independent with his care. At discharge patient plans to return home and feels this is a safe discharge. CM discussed availability of home health, rehab services, and medical equipment. Patient denied known discharge needs at this time. I informed him that we would do a room air oxygen saturation on him prior to discharge with activity to see if he qualifies for home oxygen. He states "I don't think I need it." I informed him that since he is using oxygen now, we needed to make sure. Patient removes oxygen from his nose. I asked him to replace it if he became short of breath. I contacted [facility] and they will do a room air saturation after lunch. I informed Kayla (his nurse) that she would need to call in his prescriptions to [facility] [address] since no pharmacy was entered on admission. Patient and are aware that they will have new Rx to vegetable picker. I will notify [facility] and send order if oxygen is needed. CM will continue to follow and will assist as needed with dc plans/needs. Customs Collector: Vy Palacios DCPIA - Discharge Planning Initial Assessment Updated by [id number]: Vy Palacios on 10/19/19 12:03 pm * Is the patient Alert and Oriented? Yes * How many steps to enter\\exit or inside your home? 2/0 * PCP Dr. Emery * Pharmacy [facility] [address] * Preadmission Environment Home with Family * ADLs Partial Dependent * Partial ADLs (Assistance needed) Ambulation Medication Management * Equipment Cane CPAP Oxygen * Other Equipment Electric compression sleeves Oxygen concentrator only for CPAP * List name and contact numbers for known caregivers / representatives who currently or will assist patient after discharge: Oma Owen - spouse - [phone] * Verbal permission to speak to the caregivers and representatives has been obtained from the patient. Yes * Community resources currently utilized None * Additional services required to return to the preadmission environment? Yes * Can the patient safely return to the preadmission environment? Yes * Has this patient been hospitalized within the prior 30 days at any hospital? No Coverage Notice Reviewer: [id number] Janette Vy Palacios Notice Issued Date-Time: 10/19/2019 12:10 Notice Type: Patient Choice Letter Notice Delivered To: Patient Relationship to Patient: Self Manufacturing Assembler Name: Delivery Method: HAND - Hand Delivered Amy Days: Prior Verbal Notification: Recipient Understood Notice: Yes Recipient Signature: Yes Med Rec Note Co-signed by Attending: Coverage Notice Comment: [facility] Consultant: [id number] - Lucie King Notice Issued Date-Time: 10/20/2019 9:50 Notice Type: IM Discharge Notice Notice Delivered To: Patient Relationship to Patient: Manufacturing Assembler Name: Delivery Method: HAND - Hand Delivered Amy Days: Prior Verbal Notification: Recipient Understood Notice: Yes Recipient Signature: Yes Med Rec Note Co-signed by Attending: Coverage Notice Comment: DC IMM delivered, explained, signed by the patient, and placed in chart. Signed form also left with the patient. Last DP export: 10/22/19 11:30 a Patient Name: TIMMY OWEN Page [id number] at 1239 All edits/amendments must be made on the electronic document DICTATION DATE: 10/22/19 1239 THEATRICAL DRESSER: MADY 10/22/19 1239 RPT#: [id number] DC DATE:10/20/19 STATUS: DIS IN [facility] [address] [place] [address] END OF REPORT
--- NOTE | 2019-10-29 08:53 | MORECARE ---
CASE MANAGEMENT DISCHARGE SUMMARY PATIENT: TIMMY OWEN UNIT: [id number] ADM DATE: 10/17/19 AGE: 83 : 36 SEX: M ROOM/BED: D.5673 AUTHOR: BHAVNA,DOC PHYSICIAN: REFERRING PHYSICIAN: PAUL EMERY MD DATE OF SERVICE: 10/29/19 Discharge Plan Patient Name: TIMMY OWEN Facility: [facility]:[place] : 1935 Planned Disposition: Home Anticipated Discharge Date: 10/19/19 Discharge Date: 10/20/2019 Expected LOS: 2 Initial Reviewer: [email or web address] Initial Review Date: 10/19/2019 Generated: 10/29/19 9:53 am Comments DCP- Discharge Planning Updated by [email or web address]: Lucie King on 10/20/19 9:[address] Patient Name: TIMMY OWEN Encounter No: [id number] : 1935 Primary Insurance: MEDICARE A & B Anticipated DC Date: 10-19-2019 Planned Disposition: Home External Planned Provider: : DCP follow-up note: Phone call to [facility] ([phone]) Spoke with Marine. Coordinated portable O2 delivery to hospital and set up for home. DC IMM delivered, explained, signed by the patient, and placed in chart. Signed form also left with the patient. Patient and family in agreement with discharge plan. No changes to plan. Case management will follow and assist as needed. Galdino Zarate DCP- Discharge Planning Updated by [id number]: Vy Palacios on 10/19/19 11:[address] DISCHARGE CANCELLED FOR TODAY. DCP- Discharge Planning Updated by [email or web address]: Vy Palacios on 10/19/19 11:[address] ROOM AIR OXYGEN SATURATION WAS 73%. I HAVE ASKED HIS NURSE., KAYLA, TO CALL DR EMERY THE REPORT. I FAXED CLINICAL AND ROOM AIR SAT TO [facility] AND SPOKE WITH ASHLYNN. MANDEL TO CALL [facility] WHEN PATIENT IS DISCHARGED TO BRING PORTABLE OXYGEN TO [facility]. DCP- Discharge Planning Updated by [email or web address]: Vy Palacios on 10/19/19 11:[address] Patient Name: TIMMY OWEN Admission Status: ER Accout number: [id number] Admission Date: 10-17-2019 : 1935 Admission Diagnosis:SHORTNESS OF BREATH Attending: PAUL EMERY Current LOS: 2 Anticipated DC Date: 10-19-2019 Planned Disposition: Home Primary Insurance: MEDICARE A & B Discharge Planning Comments: CM met with patient and his spouse to complete initial dc planning assessment. CM educated patient on the CM role and verbal consent given by patient to complete assessment. Patient lives at home with his spouse. He ambulates with a cane. His sets up his medications, otherwise he is independent with his care. At discharge patient plans to return home and feels this is a safe discharge. CM discussed availability of home health, rehab services, and medical equipment. Patient denied known discharge needs at this time. I informed him that we would do a room air oxygen saturation on him prior to discharge with activity to see if he qualifies for home oxygen. He states "I don't think I need it." I informed him that since he is using oxygen now, we needed to make sure. Patient removes oxygen from his nose. I asked him to replace it if he became short of breath. I contacted [facility] and they will do a room air saturation after lunch. I informed Kayla (his nurse) that she would need to call in his prescriptions to [facility] [address] since no pharmacy was entered on admission. Patient and are aware that they will have new Rx to picking table worker. I will notify [facility] and send order if oxygen is needed. CM will continue to follow and will assist as needed with dc plans/needs. Tax Accountant: Vy Palacios DCPIA - Discharge Planning Initial Assessment Updated by [email or web address]: Vy Palacios on 10/19/19 12:03 pm * Is the patient Alert and Oriented? Yes * How many steps to enter\\exit or inside your home? 2/0 * PCP Dr. Emery * Pharmacy [facility] [address] * Preadmission Environment Home with Family * ADLs Partial Dependent * Partial ADLs (Assistance needed) Ambulation Medication Management * Equipment Cane CPAP Oxygen * Other Equipment Electric compression sleeves Oxygen concentrator only for CPAP * List name and contact numbers for known caregivers / representatives who currently or will assist patient after discharge: Oma Owen - spouse - [phone] * Verbal permission to speak to the caregivers and representatives has been obtained from the patient. Yes * Community resources currently utilized None * Additional services required to return to the preadmission environment? Yes * Can the patient safely return to the preadmission environment? Yes * Has this patient been hospitalized within the prior 30 days at any hospital? No Coverage Notice Reviewer: [email or web address] Janette Vy Palacios Notice Issued Date-Time: 10/19/2019 12:10 Notice Type: Patient Choice Letter Notice Delivered To: Patient Relationship to Patient: Self Lace Mender Name: Delivery Method: HAND - Hand Delivered Amy Days: Prior Verbal Notification: Recipient Understood Notice: Yes Recipient Signature: Yes Med Rec Note Co-signed by Attending: Coverage Notice Comment: [facility] Business Partner: [id number] - Lucie Edds Notice Issued Date-Time: 10/20/2019 9:50 Notice Type: IM Discharge Notice Notice Delivered To: Patient Relationship to Patient: Lace Mender Name: Delivery Method: HAND - Hand Delivered Amy Days: Prior Verbal Notification: Recipient Understood Notice: Yes Recipient Signature: Yes Med Rec Note Co-signed by Attending: Coverage Notice Comment: DC IMM delivered, explained, signed by the patient, and placed in chart. Signed form also left with the patient. Last DP export: 10/22/19 11:39 a Patient Name: TIMMY OWEN Page [id number] at 0853 All edits/amendments must be made on the electronic document DICTATION DATE: 10/29/19852 TEENAGE PROGRAM DIRECTOR: MADY 10/29/1952 RPT#: [id number] DC DATE:10/20/19 STATUS: DIS IN [facility] [address] [place] [address] END OF REPORT
== END 2019-10-20 11:19 | disposition home or self-care (01) | DRG 286 ==
LOC: D.ER 09:35 → D.M2 12:09
PROVIDERS: Emergency Medicine; Internal Medicine Interventional Cardiology; ADMIT Family Medicine; ATTEND Family Medicine
PROC: B2151ZZ Fluoroscopy of Left Heart using Low Osmolar Contrast (ICD-10-PCS; 2019-10-19)
PROC: 4A023N7 Measurement of Cardiac Sampling and Pressure, Left Heart, Percutaneous Approach (ICD-10-PCS; 2019-10-19)
PROC: B2111ZZ Fluoroscopy of Multiple Coronary Arteries using Low Osmolar Contrast (ICD-10-PCS; principal; 2019-10-19 08:49)
DX: I11.0 Hypertensive heart disease with heart failure (principal); I50.21 Acute systolic (congestive) heart failure; I48.92 Unspecified atrial flutter; Z68.42 Body mass index [BMI] 45.0-49.9, adult; E11.9 Type 2 diabetes mellitus without complications; E66.9 Obesity, unspecified; I42.9 Cardiomyopathy, unspecified; R79.89 Other specified abnormal findings of blood chemistry